=== PATIENT | male | born 1975 | race Two or more races ===

== ENCOUNTER 2019-04-05 21:28 | Emergency (ER) | payer SELFPAY ==
[~2019-04-05] VITALS: Ht 188 cm; Wt 113.4 kg
--- NOTE | 2019-04-05 21:29 | Emergency Room Report ---
History of Present Illness General Chief Complaint: Alcohol Intoxication Source: EMS Present Illness HPI Alleged 59-year-old male presents with altered mental status, patient was seen in the side of the street acting oddly, no known aggravating relieving factors symptoms started unknown time characterization is AMS severity is moderate, constant history is limited due to patient's current intoxication During interview patient begins to yell "hhhhh" Allergies: Coded Allergies: UNABLE TO ASSESS (Unverified , 04/05/19) Patient History Limited by: medical condition - Currently intoxicated Reviewed Nursing Documentation: PMH: Agreed; PSxH: Agreed Nursing Documentation-PMH Past Medical History Deferred: Pt Cognitively Impaired Past Medical History: Deferred Review of Systems All Other Systems: limited - Currently intoxicated Physical Exam Vital Signs Date Time Temp Pulse Resp B/P (MAP) Pulse Ox O2 Delivery O2 Flow Rate FiO2 04/05/19 21:21 99.0 80 26 112/76 (88) 99 Room Air Sp02 EP Interpretation: reviewed, normal General Appearance: well appearing, no apparent distress, alert Head: normocephalic, atraumatic Eyes: bilateral eye PERRL, bilateral eye EOMI, bilateral eye other - Pupils dilated ENT: uvula midline, moist mucus membranes Neck: supple, thyroid normal, supple/symm/no masses Respiratory: lungs clear, no respiratory distress, no retraction, no accessory muscle use Cardiovascular #1: normal peripheral pulses, regular rate, rhythm, no edema, no gallop, no murmur Gastrointestinal: non tender, soft, no guarding, no rebound Musculoskeletal: normal inspection Neurologic: alert, responsive Psychiatric: mood/affect normal Skin: no rash, warm/dry Medical Decision Making Diagnostic Impression: Primary Impression: Drug abuse ER Course 59-year-old male presents with possible drug intoxication, pupils are currently dilated, patient is excitable possible sympathomimetic Will observe patient until he catherine Reevaluation 10:15 PM patient states his name is Rj and he wants to leave without signing any papers patient left his gait is stable he did not endorse using any drugs and left without his papers Dispo home w/ return precautions Last Vital Signs Date Time Temp Pulse Resp B/P (MAP) Pulse Ox O2 Delivery O2 Flow Rate FiO2 04/05/19 21:21 99.0 80 26 112/76 (88) 99 Room Air Disposition: ELOPED Condition: Stable Scripts Unable to Obtain Active Prescriptions or Reported Meds Referrals: [facility] Zoë Neal. [facility] Patient Instructions: Substance Use Disorder Additional Instructions: The patient was provided with discharge instructions, notified to follow-up with a primary care doctor and or specialist in the next 24-48 hours, and to return to the ED if they have worsening of their symptoms. Please note that this report is being documented using [employer] technology. This can lead to erroneous entry secondary to incorrect interpretation by the dictating instrument. Arsh Flores MD Apr 05, 2019 21:29
[2019-04-05 21:58] VITALS: BP 112/76
--- NOTE | 2019-04-05 21:58 | NUR ---
ER Nurse Note: Pt brought in by ambulance c/o ETOH abuse. Pt is unable to communicate, unable to assess pt and completed a head to toe assessment. Pt unable to assess pt. All safety measures met; will continue to montior.
[2019-04-05 22:15] VITALS: BP 118/70
--- NOTE | 2019-04-05 22:15 | NUR ---
ER Nurse Discharge: Patient is being discharged from medical care. Awake, alert and oriented x3. After care instructions, including referral to community resources were given. Patient verbalized understanding of After care instructions; at this time patient does not request medications, equipment or placement. Patient signed patient consent in the medical record for patient destination upon discharge. Pt refused to disclose location after discharge. All medical devices such as ID band were removed. Patient ambulated out with all personal belongings with steady gait.
== END 2019-04-05 22:15 | disposition left against medical advice (07) ==
LOC: EDBD 21:28 → EMR 22:15
DX: F19.10 Other psychoactive substance abuse, uncomplicated (principal)
CPT/HCPCS: 99281